=== PATIENT | male | born 1955 | race Asian ===

== ENCOUNTER → 2016-11-03 | Outpatient (CLI) | payer BC ==
[~2016-11-03] MED LIST: ATEN-42 PO; LIP40 PO; OLME1TAB19 PO
== END | disposition home or self-care (01) ==
LOC: CARD 08:22
PROVIDERS: ATTEND Specialist
DX: I71.9 Aortic aneurysm of unspecified site, without rupture (principal)

== ENCOUNTER → 2017-02-15 | Outpatient (CLI) | payer BC ==
[2017-02-15 14:17] LABS: BASOPHILS % 0.7 % (0.0-2.0); EOSINOPHILS % 2.2 % (0.0-5.0); LYMPHOCYTES % 21.3 % (20.0-50.0); MEAN CORPUSCULAR HEMOGLOBIN 28.8 pg (28.0-32.0); MEAN PLATELET VOLUME 8.1 fl (7.4-10.4); MONOCYTES % 7.6 % (2.0-8.0); NEUTROPHILS % 68.2 % (40.0-76.0); PLATELET 263 x1000/uL (130-400); RED BLOOD CELL COUNT 4.88 mill/uL (4.7-6.1); RED CELL DISTRIBUTION WIDTH 14.1 % (11.6-14.6)
[2017-02-15 14:34] LABS: CARBON DIOXIDE 26 mEq/L (21-32); CHLORIDE 103 mEq/L (98-107); HDL CHOLESTEROL 36 mg/dL (40-59); LDL CHOLESTEROL 77 mg/dL (5-100); T4 FREE 1.08 ng/dL (0.76-1.46)
== END | disposition home or self-care (01) ==
LOC: LAB 13:36
PROVIDERS: ATTEND Internal Medicine
DX: I10 Essential (primary) hypertension (principal); E11.9 Type 2 diabetes mellitus without complications; E78.5 Hyperlipidemia, unspecified
CPT/HCPCS: 36415; 80053; 80061; 82248; 83036; 84153; 84439; 84443; 85025

== ENCOUNTER → 2017-12-09 | Outpatient (CLI) | payer BC ==
[2017-12-09 16:16] LABS: BASOPHILS % 0.7 % (0.0-2.0); CHLORIDE 104 mEq/L (98-107); EOSINOPHILS % 1.7 % (0.0-5.0); HEMATOCRIT. 37.4 % (42.0-52.0); HEMOGLOBIN. 12.7 g/dL (14.0-18.0); LYMPHOCYTES % 23.4 % (20.0-50.0); MEAN CORPUSCULAR HEMOGLOBIN 28.7 pg (28.0-32.0); MEAN CORPUSCULAR VOLUME 84.2 fL (80.0-94.0); MEAN PLATELET VOLUME 8.6 fl (7.4-10.4); MONOCYTES % 8.8 % (2.0-8.0); NEUTROPHILS % 65.4 % (40.0-76.0); PLATELET 228 x1000/uL (130-400); RED BLOOD CELL COUNT 4.44 mill/uL (4.7-6.1); RED CELL DISTRIBUTION WIDTH 14.3 % (11.6-14.6)
[2017-12-09 16:26] LABS: LDL CHOLESTEROL 65 mg/dL (5-100)
[2017-12-09 16:27] LABS: T4 FREE 1.02 ng/dL (0.76-1.46)
[2017-12-09 16:29] LABS: HDL CHOLESTEROL 36 mg/dL (40-59)
[2017-12-11 08:15] LABS: *CREATININE RANDOM URINE 118.4 mg/dL (Not Estab.)
== END | disposition home or self-care (01) ==
LOC: LAB 14:53
PROVIDERS: ATTEND Internal Medicine
DX: M17.0 Bilateral primary osteoarthritis of knee (principal); R79.89 Other specified abnormal findings of blood chemistry
CPT/HCPCS: 36415; 73562; 80053; 80061; 80076; 82043; 82570; 83036; 84439; 84550; 85025; 85651

== ENCOUNTER 2018-04-03 02:20 | Emergency (ER) | payer BC ==
[~2018-04-03] VITALS: Ht 172.7 cm; Wt 86.0 kg
[2018-04-03] MEDS ORDERED: VANCOMYCIN 1 G PREMIX 200 ML IV ONE (03:45)
[2018-04-03 04:23] LABS: BASOPHILS % 0.3 % (0.0-2.0); EOSINOPHILS % 1.3 % (0.0-5.0); HEMATOCRIT. 38.3 % (42.0-52.0); HEMOGLOBIN. 12.9 g/dL (14.0-18.0); LYMPHOCYTES % 16.4 % (20.0-50.0); MEAN CORPUSCULAR HEMOGLOBIN 28.5 pg (28.0-32.0); MEAN CORPUSCULAR VOLUME 84.8 fL (80.0-94.0); MEAN PLATELET VOLUME 8.3 fl (7.4-10.4); MONOCYTES % 9.6 % (2.0-8.0); NEUTROPHILS % 72.4 % (40.0-76.0); PLATELET 232 x1000/uL (130-400); RED BLOOD CELL COUNT 4.52 mill/uL (4.7-6.1)
[2018-04-03 04:29] LABS: CHLORIDE 103 mEq/L (98-107)
[2018-04-03 04:53] LABS: CLARITY URINE CLEAR (CLEAR); COLOR URINE YELLOW (YELLOW); KETONES URINE NEGATIVE (NEGATIVE); LEUKOCYTE ESTERASE URINE NEGATIVE (NEGATIVE); NITRITE URINE NEGATIVE (NEGATIVE); OCCULT BLOOD URINE NEGATIVE (NEGATIVE); PH URINE 5.5 (4.5-8.0); PROTEIN URINE NEGATIVE (NEGATIVE); SPECIFIC GRAVITY URINE 1.016 (1.005-1.030); UROBILINOGEN URINE 0.2 E.U./dL (0.2-1.0)
[2018-04-03] MEDS ORDERED: HYDROCODONE/ACETAMINOPHEN 10/325MG TABLET PO ONE (05:00)
[2018-04-03 06:03] VITALS: BP 123/77
== END 2018-04-03 06:03 | disposition home or self-care (01) ==
LOC: ER 02:20
DX: L03.116 Cellulitis of left lower limb (principal); E11.9 Type 2 diabetes mellitus without complications; E78.00 Pure hypercholesterolemia, unspecified; I10 Essential (primary) hypertension; Z90.49 Acquired absence of other specified parts of digestive tract; Z79.899 Other long term (current) drug therapy; Z79.84 Long term (current) use of oral hypoglycemic drugs
CPT/HCPCS: 36415; 71045; 80053; 81003; 83605; 84145; 85025; 87040; 96365; 99284; J3370

== ENCOUNTER → 2018-04-18 | Outpatient (CLI) | payer BC ==
[2018-04-18 09:53] LABS: CHLORIDE 102 mEq/L (98-107)
[2018-04-18 09:55] LABS: BASOPHILS % 0.9 % (0.0-2.0); EOSINOPHILS % 1.5 % (0.0-5.0); HEMOGLOBIN. 12.8 g/dL (14.0-18.0); LYMPHOCYTES % 19.1 % (20.0-50.0); MEAN CORPUSCULAR HEMOGLOBIN 28.5 pg (28.0-32.0); MEAN CORPUSCULAR VOLUME 84.5 fL (80.0-94.0); MEAN PLATELET VOLUME 7.5 fl (7.4-10.4); MONOCYTES % 7.2 % (2.0-8.0); NEUTROPHILS % 71.3 % (40.0-76.0); PLATELET 321 x1000/uL (130-400); RED CELL DISTRIBUTION WIDTH 13.7 % (11.6-14.6)
[2018-04-18 10:00] LABS: LDL CHOLESTEROL 71 mg/dL (5-100)
[2018-04-18 10:02] LABS: HDL CHOLESTEROL 32 mg/dL (40-59); T4 FREE 0.98 ng/dL (0.76-1.46)
== END | disposition home or self-care (01) ==
LOC: LAB 09:18
PROVIDERS: ATTEND Internal Medicine
DX: I10 Essential (primary) hypertension (principal); E78.5 Hyperlipidemia, unspecified; E11.9 Type 2 diabetes mellitus without complications; M10.9 Gout, unspecified
CPT/HCPCS: 36415; 80061; 82248; 84153; 84439; 84443; 84550; 85651; G0103

== ENCOUNTER → 2018-09-20 | Outpatient (CLI) | payer BC ==
[2018-09-20 11:16] LABS: EOSINOPHILS % 3.5 % (0.0-5.0); HEMATOCRIT. 41.3 % (42.0-52.0); LYMPHOCYTES % 26.1 % (20.0-50.0); MEAN CORPUSCULAR HEMOGLOBIN 28.5 pg (28.0-32.0); MEAN CORPUSCULAR VOLUME 84.3 fL (80.0-94.0); MEAN PLATELET VOLUME 8.1 fl (7.4-10.4); MONOCYTES % 6.3 % (2.0-8.0); NEUTROPHILS % 63.1 % (40.0-76.0); PLATELET 244 x1000/uL (130-400); RED CELL DISTRIBUTION WIDTH 14.2 % (11.6-14.6)
[2018-09-20 11:36] LABS: CHLORIDE 106 mEq/L (98-107)
[2018-09-20 11:43] LABS: LDL CHOLESTEROL 70 mg/dL (5-100)
[2018-09-20 11:45] LABS: HDL CHOLESTEROL 33 mg/dL (40-59)
== END | disposition home or self-care (01) ==
LOC: LAB 10:40
PROVIDERS: ATTEND Internal Medicine
DX: E78.5 Hyperlipidemia, unspecified (principal); E11.9 Type 2 diabetes mellitus without complications; I10 Essential (primary) hypertension; M10.9 Gout, unspecified
CPT/HCPCS: 36415; 80048; 80061; 80076; 83036; 84442; 84443; 84550

== ENCOUNTER → 2020-06-04 | Outpatient (CLI) | payer BC ==
[2020-06-04 11:46] LABS: BASOPHILS % 0.9 % (0.0-2.0); EOSINOPHILS % 1.7 % (0.0-5.0); LYMPHOCYTES % 26.3 % (20.0-50.0); MEAN CORPUSCULAR HEMOGLOBIN 28.1 pg (28.0-32.0); MEAN CORPUSCULAR VOLUME 84.1 fL (80.0-94.0); MEAN PLATELET VOLUME 8.1 fl (7.4-10.4); MONOCYTES % 6.6 % (2.0-8.0); NEUTROPHILS % 64.5 % (40.0-76.0); PLATELET 230 x1000/uL (130-400); RED BLOOD CELL COUNT 4.99 mill/uL (4.7-6.1); RED CELL DISTRIBUTION WIDTH 13.9 % (11.6-14.6)
[2020-06-04 11:55] LABS: CHLORIDE 106 mEq/L (98-107)
[2020-06-04 12:03] LABS: LDL CHOLESTEROL 80 mg/dL (5-100)
[2020-06-04 12:04] LABS: HDL CHOLESTEROL 41 mg/dL (40-59); T4 FREE 1.05 ng/dL (0.76-1.46)
== END | disposition home or self-care (01) ==
LOC: LAB 11:10
PROVIDERS: ATTEND Internal Medicine
DX: I10 Essential (primary) hypertension (principal); E78.5 Hyperlipidemia, unspecified; E11.9 Type 2 diabetes mellitus without complications
CPT/HCPCS: 36415; 80053; 80061; 82248; 83036; 84153; 84439; 84443; 84550; 85025; G0103

== ENCOUNTER → 2021-01-07 | Outpatient (CLI) | payer BC ==
[2021-01-07 09:15] LABS: BASOPHILS % 0.9 % (0.0-2.0); HEMATOCRIT. 39.2 % (42.0-52.0); HEMOGLOBIN. 13.2 g/dL (14.0-18.0); LYMPHOCYTES % 21.4 % (20.0-50.0); MEAN CORPUSCULAR HEMOGLOBIN 28.6 pg (28.0-32.0); MEAN CORPUSCULAR VOLUME 85.3 fL (80.0-94.0); MEAN PLATELET VOLUME 8.2 fl (7.4-10.4); MONOCYTES % 7.3 % (2.0-8.0); NEUTROPHILS % 67.4 % (40.0-76.0); PLATELET 233 x1000/uL (130-400); RED CELL DISTRIBUTION WIDTH 14.5 % (11.6-14.6)
[2021-01-07 09:29] LABS: CHLORIDE 105 mEq/L (98-107)
[2021-01-07 09:37] LABS: LDL CHOLESTEROL 66 mg/dL (5-100)
[2021-01-07 09:39] LABS: HDL CHOLESTEROL 37 mg/dL (40-59)
[2021-01-07 10:05] LABS: CLARITY URINE CLEAR (CLEAR); COLOR URINE YELLOW (YELLOW); KETONES URINE NEGATIVE (NEGATIVE); LEUKOCYTE ESTERASE URINE NEGATIVE (NEGATIVE); NITRITE URINE NEGATIVE (NEGATIVE); OCCULT BLOOD URINE NEGATIVE (NEGATIVE); PROTEIN URINE NEGATIVE (NEGATIVE); SPECIFIC GRAVITY URINE 1.013 (1.005-1.030); UROBILINOGEN URINE 0.2 E.U./dL (0.2-1.0)
== END | disposition home or self-care (01) ==
LOC: LAB 08:40
PROVIDERS: ATTEND Internal Medicine
DX: M47.816 Spondylosis without myelopathy or radiculopathy, lumbar region (principal); M48.061 Spinal stenosis, lumbar region without neurogenic claudication; M41.84 Other forms of scoliosis, thoracic region; M25.78 Osteophyte, vertebrae; E11.9 Type 2 diabetes mellitus without complications; R31.9 Hematuria, unspecified; M54.9 Dorsalgia, unspecified; E78.5 Hyperlipidemia, unspecified
CPT/HCPCS: 36415; 72070; 72100; 80053; 80061; 81003; 82248; 83036; 84153; 84436; 84443; 84550; 85025; G0103

== ENCOUNTER → 2021-01-09 | Outpatient (CLI) | payer BC | END | disposition home or self-care (01) | LOC: US 08:58 | PROVIDERS: ATTEND Internal Medicine | DX: N20.0 Calculus of kidney (principal); N28.1 Cyst of kidney, acquired; R31.9 Hematuria, unspecified | CPT/HCPCS: 76770 ==